=== PATIENT | female | born 1995 | race Native Hawaiian/Other Pacific Islander ===

== ENCOUNTER 2016-07-24 01:59 | Emergency (ER) | payer BC ==
[2016-07-24 02:13] VITALS: RESP 18
--- NOTE | 2016-07-24 02:17 | EDPHY ---
H & P Stated Complaint: asthma exacerbation Time Seen by Provider: 07/24/16 02:07 HPI/ROS: Chief Complaint: Asthma HPI: 21-year-old patient with a history of asthma symptoms when she gets upper respiratory symptoms presenting with worsening cough and chest tightness for the last 2-3 days. Patient has a nebulizer machine which she has been using at home which has not been helping her much. She also occasionally uses inhaler but has run out. Is not normally on any controlled medications. Only needs to use medications about 2 to 3 times a year when she gets an upper respiratory infection. She has a nonproductive cough. No fevers or chills. No nausea or vomiting. ROS: 10 point Review of Systems is negative except as noted in the HPI. PMH: Bronchitis Social History: No smoking, no alcohol, no recreational drug use Family History: non-contributory Physical Exam: Gen: Awake, Alert, No Distress HEENT: Nose: no rhinorrhea Eyes: PERRLA, EOMI Mouth: Moist mucosa Neck: Supple, no JVD Chest: nontender, lungs clear to auscultation Heart: S1, S2 normal, no murmur Abd: Soft, non-tender, no guarding Back: no CVA tenderness, no midline tenderness Ext: no edema, non-tender Skin: no rash Neuro: CN II-XII intact, Sensation grossly intact, Strength 5/5 in bilateral upper and lower extremities - Personal History Current Tetanus/Diphtheria Vaccine: Yes Current Tetanus Diphtheria and Acellular Pertussis (TDAP): Yes - Medical/Surgical History Hx Asthma: Yes Hx Chronic Respiratory Disease: No Hx Diabetes: No Hx Cardiac Disease: No Hx Renal Disease: No Hx Cirrhosis: No Hx Alcoholism: No Hx HIV/AIDS: No Hx Splenectomy or Spleen Trauma: No - Social History Smoking Status: Never smoked Constitutional: Initial Vital Signs Temperature (C) 37.1 C 07/24/16 02:00 Heart Rate 116 H 07/24/16 02:00 Respiratory Rate 18 07/24/16 02:00 Blood Pressure 138/91 H 07/24/16 02:00 O2 Sat (%) 95 07/24/16 02:00 O2 Delivery Mode Room Air Allergies/Adverse Reactions: No Known Allergies Allergy (Unverified 07/24/16 02:10) Home Medications: Medication Instructions Recorded Albuterol 05/07/17 Albuterol Sulfate [ALBUTEROL 0.63 mg IH Q4 PRN #25 vial.neb 07/24/16 SULFATE] Albuterol [Proventil Inhaler HFA 1 - 2 puffs IH Q4H PRN #1 mdi 07/24/16 (*)] Inhaler, Assist Devices [Space 1 each MC Q4H PRN #1 spacer 07/24/16 Chamber Plus] Medical Decision Making ED Course/Re-evaluation: 21-year-old female with wheezing symptoms with likely bronchitis. She has a normal respiratory exam here. She is satting 95% on room air. She has no wheezes or crackles on her lung exam. There is no increased work of breathing or tachypnea. She states she does not feel like she is tight in her chest at this time. Will discharge her with prescriptions for albuterol inhaler, spacer and nebulizer ampules. Will refer her for primary care follow-up as an outpatient, return for worsening symptoms. Departure - Departure Disposition: Home, Routine, Self-Care Clinical Impression: Acute bronchitis Condition: Good Instructions: Acute Bronchitis (ED) Additional Instructions: Make sure to use a spacer when you use your albuterol inhaler. Follow up with primary care physician in 3-4 days if symptoms are not improving. Return emergency depart for increasing shortness of breath, fevers, chills, cough, or any other concerns. Referrals: ANDREW LITTLE [Other] - As per Instructions Prescriptions: Albuterol [Proventil Inhaler HFA (*)] 1 - 2 puffs IH Q4H PRN #1 mdi PRN Reason: Wheezing Albuterol Sulfate [ALBUTEROL SULFATE] 0.63 mg IH Q4 PRN #25 vial.neb PRN Reason: Wheezing Inhaler, Assist Devices [Space Chamber Plus] 1 each MC Q4H PRN #1 spacer PRN Reason: Wheezing
[2016-07-24 02:50] VITALS: BP 128/78; PULSE 102; TEMP 98.1; O2SAT 96
== END 2016-07-24 02:49 | disposition home or self-care (01) ==
DX: J20.9 Acute bronchitis, unspecified (principal); J45.909 Unspecified asthma, uncomplicated

== ENCOUNTER 2018-03-10 11:01 | Emergency (ER) | payer BC ==
[2018-03-10 11:06] VITALS: BP 145/98
--- NOTE | 2018-03-10 11:33 | EDPHY ---
H & P Time Seen by Provider: 03/10/18 11:19 HPI/ROS: CHIEF COMPLAINT: Right 5th metatarsal pain HISTORY OF PRESENT ILLNESS: 22-year-old currently 8 weeks gestation female via private vehicle complaining of acute right 5th metatarsal pain. She was walking last evening, rolled her foot, felt a pop sensation. She is able to bear weight albeit with significant pain. No fall from height. No ankle pain. No proximal tibia or fibula pain. No paresthesia. PHYSICAL EXAM (Prior to examination, patient consented to physical exam, hands were washed and my usual and customary physical exam procedures followed) 1) GENERAL: Well-developed, well-nourished, alert and oriented. Appears to be in no acute distress. 2) HEAD: Normocephalic 3) HEENT: Pupils equal, round, reactive to light bilaterally. 4) LUNGS: Breathing comfortably. 5) MUSCULOSKELETAL: Focal tender to palpation right 5th metatarsal with intact skin. Ecchymosis noted. Ankle nontender. proximal tibia and fibula nontender .5th MT nontender negative Gordon test, compartments soft 6) SKIN: Intact. 7) VASCULAR: DP,PT pulses and cap refill present and brisk DIFFERENTIAL DIAGNOSIS: in no particular order including but not limited to fracture, sprain, compartment syndrome Procedure: Crutches indications for crutch use discussed with patient. Patient fitted for crutches by ER staff. Observed ambulating with crutches. I think the patient has the capacity to safely use crutches. Usual and customary crutch walking precautions provided Procedure: Splint A jillian boot splint was applied by ER clinical laboratory technician. After application of the splint I returned and re-examined the patient. The splint was adequately immobilizing the joint and distal to the splint the patient's circulation and sensation were intact. Patient shows no signs of compartment syndrome. Was given orthopedic precautions. Smoking Status: Never smoked Constitutional: Initial Vital Signs Temperature (C) 36.7 C 03/10/18 11:04 Heart Rate 101 H 03/10/18 11:04 Respiratory Rate 18 03/10/18 11:04 Blood Pressure 145/98 H 03/10/18 11:04 O2 Sat (%) 99 03/10/18 11:04 O2 Delivery Mode Room Air Allergies/Adverse Reactions: No Known Allergies Allergy (Unverified 07/24/16 02:10) Home Medications: Medication Instructions Recorded NK [No Known Home Meds] 03/10/18 MDM/Departure - [facility] ED Course/Re-evaluation: 11:30 a.m.: Prior to ordering x-ray patient and I discussed radiation exposure in the presence of 8 week . Patient will have lead placed on her. I recommended x-ray given the complain of pain to her 5th metatarsal. Indications risks benefits were discussed with patient. She provides verbal consent. I believe the patient to have decision-making capacity 11:40 a.m.: Called to the bedside as patient has changed her mind, is declining x-ray. Informed of the risks of declining x-ray including, but not limited to, undiagnosed fracture. She does want a boot and crutches. I recommended orthopedic follow-up in given her this referral information, given her my usual a and customary orthopedic precautions and instructions. Care of patient under supervision of secondary supervising physician Dr Laith Monet. - Depart Disposition: Home, Routine, Self-Care Clinical Impression: Right foot pain Condition: Good Instructions: Foot Contusion (ED) Additional Instructions: Return to the ER immediately if you experience discoloration, have worsening pain, numbness, tingling, or any other symptoms that concern you. If you received x-rays in the emergency department today, be advised, that ligamentous , tendon, muscular, and other non-bony injury cannot be fully ruled out. Try to keep your affected extremity elevated above the level of your chest, and keep cold packs on the affected area, for the next 48 hours. You have declined an x- ray of your foot. Referrals: Stephen Yang MD [Medical Doctor] - 5-7 days, call for appt.
== END 2018-03-10 12:04 | disposition home or self-care (01) ==
DX: M79.671 Pain in right foot (principal); O9A.211 Injury, poisoning and certain other consequences of external causes complicating pregnancy, first trimester; Z3A.08 8 weeks gestation of pregnancy; W18.40XA Slipping, tripping and stumbling without falling, unspecified, initial encounter
CPT/HCPCS: L4386

== ENCOUNTER 2018-03-10 16:52 | Emergency (ER) | payer BC ==
[2018-03-10 16:59] VITALS: BP 158/90
--- NOTE | 2018-03-10 17:44 | EDPHY ---
H & P Time Seen by Provider: 03/10/18 17:12 HPI/ROS: Chief complaint: Continued right foot pain, requesting an x-ray History of present illness: This is a 22-year-old female who is 8 weeks who returns to the emergency department for right foot pain. She was seen earlier today and diagnosed with a right foot injury after rolling her foot last night. An x-ray was offered but she declined. She has since changed her mind and would like to proceed with the x-ray. She is currently 8 weeks . She understands risk of radiation exposure. There has been no other changes since previously seen. Smoking Status: Never smoked Physical Exam: General: Alert, nontoxic. Skin: Contusion to the lateral aspect of the foot. Musculoskeletal: Tenderness to the lateral aspect of the foot. She is moving the digits well. Ankle is nontender and she is moving it well. Achilles appears intact. Vascular: DP and PT pulses 2+. Neurologic: Sensation intact in the right foot. Constitutional: Initial Vital Signs Temperature (C) 36.7 C 03/10/18 16:56 Heart Rate 95 03/10/18 16:56 Respiratory Rate 18 03/10/18 16:56 Blood Pressure 158/90 H 03/10/18 16:56 O2 Sat (%) 99 03/10/18 16:56 O2 Delivery Mode Room Air Allergies/Adverse Reactions: No Known Allergies Allergy (Unverified 07/24/16 02:10) Home Medications: Medication Instructions Recorded NK [No Known Home Meds] 03/10/18 MDM/Departure - MDM Imaging Results: Imaging Impressions Foot X-Ray 03/10/18 17:00 Impression: 1. Oblique nondisplaced fracture proximal shaft right fifth metatarsal. Imaging: I viewed and interpreted images myself Procedures: Patient is already in a walking boot. She is on crutches. ED Course/Re-evaluation: Patient seen under the supervision of my secondary supervising physician Dr. Sabine Griffin. Patient presents requesting an x-ray of a right foot injury. The foot is neurovascularly intact. Risks and benefits of an x-ray in the setting of early was discussed. She was appropriately shielded. X-ray reveals a 5th metatarsal fracture. She will remain in the walking boot. She is to remain on crutches remain nonweightbearing. She is referred to Orthopedics. Home care is discussed. Return precautions are given. The patient voiced understanding and agreement with plan. Differential Diagnosis: Included but not limited to contusion, sprain or strain, bony fracture, joint dislocation - Depart Disposition: Home, Routine, Self-Care Clinical Impression: Foot fracture Qualifiers: Encounter type: initial encounter Fracture type: closed Laterality: right Qualified Code(s): S92.901A - Unspecified fracture of right foot, initial encounter for closed fracture Condition: Good Instructions: Foot Fracture in Adults (ED) Additional Instructions: Follow-up with orthopedics for continued evaluation and care next week Ice the injury 20 min on, 3 times daily for the next 3 days Elevate the injury as much as possible Do not walk on the injury Use Tylenol as directed as needed for pain If symptoms worsen or new symptoms develop return to the emergency department for recheck Stand Alone Forms: Work Excuse Referrals: Patient,NotPresent [Primary Care Provider] - As per Instructions Stephen Yang MD [Medical Doctor] - As per Instructions
== END 2018-03-10 17:50 | disposition home or self-care (01) ==
DX: S92.354A Nondisplaced fracture of fifth metatarsal bone, right foot, initial encounter for closed fracture (principal); Z3A.08 8 weeks gestation of pregnancy; W18.49XA Other slipping, tripping and stumbling without falling, initial encounter; Y92.9 Unspecified place or not applicable; Y93.9 Activity, unspecified; Y99.9 Unspecified external cause status